=== PATIENT | female | born 1950 | race Caucasian/White ===

== ENCOUNTER 2020-05-15 12:20 | Day surgery (SDC) | payer MEDICARE, OTHER ==
[~2020-05-15] VITALS: Ht 154.9 cm; Wt 79.5 kg
[2020-05-15 13:15] LABS: BASOPHILS 2.7 % (0-2); EOSINOPHILS 3.6 % (0-7); IMMATURE GRANULOCYTES 0.4 % (0-5); LYMPHOCYTE ABS# 1.46 10x3/uL (1.18-3.74); LYMPHOCYTES 14.5 % (15-50); MONOCYTES 14.1 % (2-11); NEUTROPHIL ABS# 6.53 10x3/uL (1.56-6.13); NEUTROPHILS 64.7 % (40-80)
[2020-05-15 13:35] LABS: ALBUMIN 2.9 g/dL (3.4-5.0); ANION GAP 13.6 mmol/L (8-16); CALCIUM 9.3 mg/dL (8.5-10.1); CREATININE - SERUM 1.6 mg/dL (0.6-1.3); POTASSIUM - SERUM 3.6 mmol/L (3.5-5.1); PROTEIN - SERUM 6.7 g/dL (6.4-8.2)
[2020-05-15 13:51] LABS: HEMATOCRIT 28.8 % (36.0-48.0); HEMOGLOBIN 9.8 g/dL (12-16); MCH 33.2 pg (26.0-34.0); MCV 97.6 fL (80.0-100.0); RBC 2.95 10x6/uL (4.00-5.40); WBC 11.8 10x3/uL (4.8-10.8)
[2020-05-15 13:52] LABS: PLATELET COUNT 261 10x3/uL (130-400); RDW 18.4 % (11.5-14.5)
[2020-05-15 14:01] VITALS: BP 103/67; Ht 154.9 cm; Wt 79.5 kg
[2020-05-15 14:25] LABS: APTT 33.6 SECONDS (22.8-39.4); INR 1.63 (0.85-1.17)
--- NOTE | 2020-05-15 15:50 | NUR ---
0947 DR ANN NOTIFIED OF PTS BP OF 90/43 AND 99/40. ORDERS GIVEN AND NOTED
--- NOTE | 2020-05-15 18:36 | NUR ---
1635 B/P RETURN TO NORMAL. ASSISTED UP TO W/C AND ASSISTANCE GETTING DRESSED. INSTRUCTIONS GIVEN.1630 ALBUMIN INFUSED AND B/P WNL
== END 2020-05-15 16:45 | disposition home or self-care (01) ==
LOC: D.SP 12:20 → D.CT 14:00 → D.SP 16:45
PROVIDERS: Radiology Vascular & Interventional Radiology; ATTEND Legal Medicine
DX: R18.8 Other ascites (principal); R63.5 Abnormal weight gain; R06.00 Dyspnea, unspecified